=== PATIENT | female | born 1995 | race Caucasian/White ===

== ENCOUNTER 2020-01-19 18:15 | Emergency (ER) | payer SELFPAY ==
[~2020-01-19] VITALS: Ht 162 cm; Wt 77.1 kg
--- NOTE | 2020-01-19 18:36 | ED Cough/URI ---
General Chief Complaint: Coughing up blood Stated Complaint: COUGHING UP BLOOD Nursing Triage Note: TO TRIAGE WITH COMPLAINTS OF COUGHING UP BLOOD STARTING YESTERDAY. DX WITH FLU A LAST WEEK. Sepsis Screen: No Definite Risk Source: patient Exam Limitations: no limitations History of Present Illness Date Seen by Provider: Jan 19, 2020 Time Seen by Provider: 18:31 Initial Comments To ER with reports of hemoptysis that began yesterday, diagnosed with influenza A last week. She also vapes. Her hemoptysis is described as sputum with streaks of blood in it. Timing/Duration: constant Severity/Quality: moderate Associated Symptoms: cough, nasal congestion Allergies and Home Medications Allergies Coded Allergies: No Known Drug Allergies (Unverified , 01/19/20) Home Medications No Active Prescriptions or Reported Meds Patient Home Medication List Home Medication List Reviewed: Yes Review of Systems Review of Systems Constitutional: see HPI EENTM: see HPI Respiratory: see HPI, cough, hemoptysis Cardiovascular: no symptoms reported Genitourinary: no symptoms reported Musculoskeletal: no symptoms reported Skin: no symptoms reported Past [id number] Hx Patient Social History Alcohol Use: Occasionally Uses Recreational Drug Use: No Type Used: Electronic/Vapor Recent Foreign Travel: No Contact w/Someone Who Travel: No Recent Infectious Disease Expo: No Recent Hopitalizations: No Seasonal Allergies Seasonal Allergies: No Past Medical History Surgeries: Yes Gallbladder, Tonsillectomy Cardiac: No Neurological: No Genitourinary: No Gastrointestinal: No Musculoskeletal: No Endocrine: No HEENT: No Cancer: No Psychosocial: No Integumentary: No Physical Exam Vital Signs - First Documented 01/19/20 18:21 Temp 36.8 Pulse 86 Resp 16 B/P (MAP) 106/68 (81) Pulse Ox 100 O2 Delivery Room Air Capillary Refill : Less Than 3 Seconds Height: '" Weight: lbs. oz. kg; 29.00 BMI Method: General Appearance: WD/WN, no apparent distress, other (alert and oriented no distress occipital sentences lungs are clear, oxygen saturation 100% on room air, heart rate 84.) HEENT: PERRL/EOMI, normal ENT inspection Respiratory: normal breath sounds, no respiratory distress, no accessory muscle use Gastrointestinal: normal bowel sounds, non tender Extremities: normal range of motion, non-tender Neurologic/Psychiatric: alert, normal mood/affect, oriented x 3 Skin: normal color, warm/dry Progress/Results/Core Measures Suspected Sepsis Recent Fever Within 48 Hours: No Infection Criteria Present: Suspected New Infection New/Unexplained Altered Menta: No Sepsis Screen: No Definite Risk SIRS Temperature: Pulse: 86 Respiratory Rate: 16 Laboratory Tests 01/19/20 18:38: White Blood Count 7.7 Blood Pressure 106 /68 Mean: 81 Laboratory Tests 01/19/20 18:38: Platelet Count 318 Results/Orders Lab Results Laboratory Tests Test 01/19/20 18:38 Range/Units White Blood Count 7.7 4.3-11.0 10^3/uL Red Blood Count 4.74 4.35-5.85 10^6/uL Hemoglobin 13.5 11.5-16.0 G/DL Hematocrit 42 35-52 % Mean Corpuscular Volume 88 80-99 FL Mean Corpuscular Hemoglobin 29 25-34 PG Mean Corpuscular Hemoglobin Concent 32 32-36 G/DL Red Cell Distribution Width 12.9 10.0-14.5 % Platelet Count 318 130-400 10^3/uL Mean Platelet Volume 11.0 H 7.4-10.4 FL Neutrophils (%) (Auto) 62 42-75 % Lymphocytes (%) (Auto) 24 12-44 % Monocytes (%) (Auto) 14 H 0-12 % Eosinophils (%) (Auto) 1 0-10 % Basophils (%) (Auto) 0 0-10 % Neutrophils # (Auto) 4.8 1.8-7.8 X 10^3 Lymphocytes # (Auto) 1.8 1.0-4.0 X 10^3 Monocytes # (Auto) 1.0 0.0-1.0 X 10^3 Eosinophils # (Auto) 0.1 0.0-0.3 10^3/uL Basophils # (Auto) 0.0 0.0-0.1 10^3/uL D-Dimer 0.39 0.00-0.49 UG/ML Serum Test, Qualitative NEGATIVE NEGATIVE My Orders Orders - LEBRON PAYNE APRN Chest Pa/Lat (2 View) (01/19/20 18:30) Cbc With Automated Diff (01/19/20 18:38) Fibrin Degradation Products (01/19/20 18:38) Hcg,Qualitative Serum (01/19/20 18:38) Vital Signs/I&O 01/19/20 18:21 Temp 36.8 Pulse 86 Resp 16 B/P (MAP) 106/68 (81) Pulse Ox 100 O2 Delivery Room Air Capillary Refill : Less Than 3 Seconds Blood Pressure Mean: 81 Departure Impression Primary Impression: Hemoptysis Additional Impression: Bilateral otitis media Disposition: HOME, SELF-CARE Condition: Stable Departure-Patient Inst. Decision time for Depature: 18:36 Referrals: NO,LOCAL PHYSICIAN (PCP/Family) Primary Care Physician Patient Instructions: Coughing up Blood, Ear Infections (Otitis Media) Scripts Amoxicillin (Amoxicillin) 500 Mg Capsule 500 MG PO TID, #21 CAP 0 Refills Prov: LEBRON PAYNE APRN 01/19/20 Work/School Note: Work Release Form Date Seen in the Emergency Department: Jan 20, 2020 Return to Work: Jan 19, 2020 LEBRON PAYNE APRN Jan 19, 2020 18:36
--- NOTE | 2020-01-19 18:43 | Diagnostic Imaging Report ---
INDICATION: Hemoptysis. PA and lateral views of the chest were obtained. FINDINGS: The heart size, mediastinal configuration, and pulmonary vascularity are within normal limits. There is no pleural effusion, pneumothorax, or pneumonia. The osseous structures are unremarkable. IMPRESSION: No acute cardiopulmonary abnormality. Dictated by: Dictated on workstation # [id number]
[2020-01-19 18:56] LABS: BASOPHILS % (AUTO) 0 % (0-10); EOSINOPHILS # (AUTO) 0.1 10^3/uL (0.0-0.3); EOSINOPHILS % (AUTO) 1 % (0-10); HEMATOCRIT 42 % (35-52); HEMOGLOBIN 13.5 G/DL (11.5-16.0); LYMPHOCYTES # (AUTO) 1.8 X 10^3 (1.0-4.0); LYMPHOCYTES % (AUTO) 24 % (12-44); MEAN CORPUSCULAR HEMOGLOBIN 29 PG (25-34); MEAN CORPUSCULAR HGB CONC 32 G/DL (32-36); MEAN CORPUSCULAR VOLUME 88 FL (80-99); MONOCYTES % (AUTO) 14 % (0-12); NEUTROPHILS # (AUTO) 4.8 X 10^3 (1.8-7.8); NEUTROPHILS % (AUTO) 62 % (42-75); PLATELET COUNT 318 10^3/uL (130-400); RED CELL DISTRIBUTION WIDTH 12.9 % (10.0-14.5); WHITE BLOOD COUNT 7.7 10^3/uL (4.3-11.0)
[2020-01-19] MEDS ORDERED: AMOX500C2 PO (19:11)
[2020-01-19 19:15] VITALS: BP 110/69
== END 2020-01-19 19:19 | disposition home or self-care (01) ==
LOC: ER 18:17
DX: R04.2 Hemoptysis (principal); H66.93 Otitis media, unspecified, bilateral
CPT/HCPCS: 36415; 71046; 84703; 85025; 85379